=== PATIENT | female | born 1995 | race Two or more races ===

== ENCOUNTER 2022-10-07 07:10 | Day surgery (SDC) | payer OTHER ==
[~2022-10-07] VITALS: Ht 165.1 cm; Wt 67.1 kg
[2022-10-07] MEDS ORDERED: TRAM1TAB98 PO (15:50)
[2022-10-07] MEDS ORDERED: NAPRELAN500 M1 PO (15:50)
== END 2022-10-07 17:20 | disposition home or self-care (01) ==
LOC: CIR.AMB 07:10
PROVIDERS: ATTEND Obstetrics & Gynecology
DX: D27.0 Benign neoplasm of right ovary (principal); Z20.822 Contact with and (suspected) exposure to COVID-19